=== PATIENT | male | born 1990 | race African-American/Black ===

== ENCOUNTER 2023-12-07 10:52 | Emergency (ER) | payer MEDICAID ==
[~2023-12-07] VITALS: Ht 162.6 cm; Wt 52.2 kg
[2023-12-07 11:01] VITALS: BP 134/71; TEMP 98.3; O2SAT 100
[2023-12-07 11:02] VITALS: PULSE 61; RESP 16; O2SAT 99
[2023-12-07] MEDS ORDERED: AMOX1TAB16 MT (12:17)
== END 2023-12-07 12:40 | disposition home or self-care (01) ==
LOC: ER 11:08
DX: H02.846 Edema of left eye, unspecified eyelid (principal)
CPT/HCPCS: 99283